=== PATIENT | male | born 2000 | race Hispanic/Latino ===

== ENCOUNTER 2024-09-26 20:29 | Emergency (ER) | payer BC ==
[~2024-09-26] VITALS: Ht 172.7 cm; Wt 62.6 kg
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
[2024-09-26] MEDS ORDERED: IBUP-2077 PO (21:57)
[2024-09-26 22:09] VITALS: BP 135/84; PULSE 85; RESP 17; TEMP 97.8; O2SAT 98
== END 2024-09-26 22:21 | disposition home or self-care (01) ==
LOC: EDH 20:29
DX: S62.111A Displaced fracture of triquetrum [cuneiform] bone, right wrist, initial encounter for closed fracture (principal); S60.221A Contusion of right hand, initial encounter; X58.XXXA Exposure to other specified factors, initial encounter; Y93.89 Activity, other specified; Y92.89 Other specified places as the place of occurrence of the external cause; Y99.8 Other external cause status
CPT/HCPCS: 29125; 73110; 73130; 99283